=== PATIENT | female | born 1935 | race Caucasian/White ===

== ENCOUNTER → 2016-03-01 | Outpatient (CLI) | payer OTHER, MEDICARE | LOC: MMPC 11:11 | PROVIDERS: ATTEND Internal Medicine | DX: I10 Essential (primary) hypertension (principal); E78.5 Hyperlipidemia, unspecified; E03.9 Hypothyroidism, unspecified; J44.9 Chronic obstructive pulmonary disease, unspecified; E66.9 Obesity, unspecified | CPT/HCPCS: 99213; G0463 ==

== ENCOUNTER → 2016-03-03 | Outpatient (CLI) | payer OTHER, MEDICARE ==
[2016-03-03 10:42] LABS: BASOPHILS # (AUTO) 0.04 10*3/UL; BASOPHILS % (AUTO) 0.5 % (0-1); EOSINOPHILS % (AUTO) 1.2 % (0-8); HEMATOCRIT 48.1 % (37.0-47.0); IMM GRAN % (AUTO) 0.2 % (0-5); IMM GRAN# (AUTO) 0.02 10*3/UL; LYMPHOCYTES # (AUTO) 1.56 10*3/uL; LYMPHOCYTES % (AUTO) 18.3 % (10-50); MEAN CORPUSCULAR HEMOGLOBIN 31.9 PG (27-31); MEAN CORPUSCULAR HGB CONC 33.3 g/dL (33-37); MEAN PLATELET VOLUME 11.6 FL (7.4-12.2); MONOCYTES # (AUTO) 1.05 10*3/UL (0.3-0.8); MONOCYTES % (AUTO) 12.3 % (5-15); NEUTROPHILS # (AUTO) 5.77 10*3/UL; NEUTROPHILS % (AUTO) 67.5 % (50-80); RDW COEFFICIENT OF VARIATION 12.9 % (11.5-14.5); RED BLOOD COUNT 5.02 10^6/uL (4.20-5.40); WHITE BLOOD COUNT 8.54 10^3/uL (4.8-10.8)
[2016-03-03 10:44] LABS: BILIRUBIN,URINE NEGATIVE (NEG); CLARITY,URINE CLEAR (CLEAR); GLUCOSE, URINE (UA) NEGATIVE (NEG); LEUKOCYTE ESTERASE ,URINE TRACE (NEG); NITRATE,URINE NEGATIVE (NEG); OCCULT BLOOD,URINE NEGATIVE (NEG); PLATELET MORPHOLOGY COMMENT NORMAL MORPHOLOGY (NORM); PROTEIN,URINE NEGATIVE (NEG); UROBILINOGEN,URINE 0.2 mg/dL (0.2)
[2016-03-03 10:47] LABS: URINE SAMPLE TYPE CLEAN CATCH URINE
[2016-03-03 10:48] LABS: SQUAMOUS EPITHELIAL CELL,UR RARE; WBC,URINE 0-3
[2016-03-03 10:54] LABS: BILIRUBIN,TOTAL 0.7 mg/dL (0.3-1.2); BUN/CREATININE RATIO 18.33 (6-20); CALCIUM 9.6 mg/dL (8.7-10.7); CREATININE 1.2 mg/dL (0.50-1.20); LDL CHOLESTEROL,CALCULATED 55.2 mg/dL; POTASSIUM 4.8 meq/L (3.8-5.2); TOTAL PROTEIN 6.8 g/dL (6.1-8.0)
[2016-03-03 11:01] LABS: HEMOGLOBIN A1C 6.07 % (4.2-6.0); MEAN BLOOD GLUCOSE (CALC) 116.131 mg/dL
== END ==
LOC: MOB LAB 08:15
PROVIDERS: ATTEND Internal Medicine
DX: R73.03 Prediabetes (principal); E78.5 Hyperlipidemia, unspecified; E03.9 Hypothyroidism, unspecified; E66.01 Morbid (severe) obesity due to excess calories; I10 Essential (primary) hypertension; J44.9 Chronic obstructive pulmonary disease, unspecified
CPT/HCPCS: 36415; 80053; 80061; 81001; 83036; 84439; 84443; 85025

== ENCOUNTER → 2016-06-23 | Outpatient (CLI) | payer OTHER, MEDICARE ==
[2016-06-23 10:59] LABS: BLOOD UREA NITROGEN 25 mg/dL (7-22); BUN/CREATININE RATIO 19.23 (6-20)
[2016-06-23 11:00] LABS: HEMOGLOBIN A1C 5.95 % (4.2-6.0)
== END ==
LOC: MOB LAB 08:04
PROVIDERS: ATTEND Internal Medicine
DX: E11.8 Type 2 diabetes mellitus with unspecified complications (principal); E03.9 Hypothyroidism, unspecified; E78.5 Hyperlipidemia, unspecified; I10 Essential (primary) hypertension; J44.9 Chronic obstructive pulmonary disease, unspecified
CPT/HCPCS: 36415; 80048; 83036

== ENCOUNTER → 2016-08-02 | Outpatient (CLI) | payer OTHER, MEDICARE | LOC: MMPC 11:11 | PROVIDERS: ATTEND Internal Medicine | DX: J20.9 Acute bronchitis, unspecified (principal); J44.9 Chronic obstructive pulmonary disease, unspecified; R09.02 Hypoxemia; I10 Essential (primary) hypertension | CPT/HCPCS: 99213; G0463 ==